=== PATIENT | male | born 1985 | race Caucasian/White ===

== ENCOUNTER → 2023-03-20 | Outpatient (CLI) | payer OTHER | END | disposition home or self-care (01) | LOC: RADPV 08:54 | PROVIDERS: ATTEND Chiropractor | DX: R07.9 Chest pain, unspecified (principal); M79.642 Pain in left hand; M79.641 Pain in right hand; M13.80 Other specified arthritis, unspecified site | CPT/HCPCS: 93005; 93306; 73120-TC ==